=== PATIENT | male | born 1985 | race Caucasian/White ===

== ENCOUNTER 2016-09-12 14:17 | Emergency (ER) | payer SELFPAY ==
[~2016-09-12] VITALS: Ht 181.6 cm; Wt 91.0 kg
[2016-09-12] MEDS ORDERED: SODIUM CHLORIDE 0.9% 1,000 ML IV ONE (14:55)
[2016-09-12] MEDS ORDERED: SODIUM CHLORIDE FLUSH 10ML SYR IVF ONE (15:00)
[2016-09-12] MEDS ORDERED: SODIUM CHLORIDE 0.9% 1,000ML IVBOLUS ONE (15:00)
[2016-09-12] MEDS ORDERED: ONDANSETRON 2MG/ML, 2ML IVPush ONE (15:00)
[2016-09-12] MEDS ORDERED: ONDANSETRON 2MG/ML, 2ML ONE (15:22)
[2016-09-12 15:26] LABS: ASPARTATE AMINO TRANSFERASE 25 U/L (15-37); BLOOD UREA NITROGEN 17 mg/dL (7-18)
[2016-09-12 15:29] LABS: ACETAMINOPHEN < 2 mcg/mL (10-30)
[2016-09-12 17:16] LABS: DAU SCREEN DISCLAIMER
[2016-09-12 17:45] LABS: PATH.CAST-FLAG NOT PRESENT; SPERM-FLAG NOT PRESENT; SRC-FLAG NOT PRESENT; XTAL-FLAG NOT PRESENT; YLC-FLAG NOT PRESENT
[2016-09-12 18:23] VITALS: BP 103/55
== END 2016-09-12 18:25 | disposition home or self-care (01) ==
LOC: ED 16:40
DX: R41.0 Disorientation, unspecified (principal); F12.10 Cannabis abuse, uncomplicated; D72.829 Elevated white blood cell count, unspecified
CPT/HCPCS: 36415; 70450; 71020; 80053; 80307; 80329; 81001; 82140; 83605; 84145; 85025; 87040; 93005; 96361; 96374; 99285; J2405; J7030; G0480